=== PATIENT | male | born 1970 | race Caucasian/White ===

== ENCOUNTER 2022-11-07 06:56 | Day surgery (SDC) | payer MEDICAID ==
[~2022-11-07] VITALS: Ht 177.8 cm; Wt 99.8 kg
[2022-11-07] MEDS ORDERED: MEPERIDINE 100 MG INJ. 100 MG/ML VIAL ONE (08:03)
[2022-11-07] MEDS ORDERED: MIDAZOLAM HCL 5 MG/5 ML VIAL ONE ×2 (08:03→08:48)
[2022-11-07] MEDS ORDERED: SIMETHICONE 40 MG/0.6 ML ML ONE (08:04)
[2022-11-07 08:25] VITALS: O2SAT 98
[2022-11-07 15:34] VITALS: BP_SYST 144; PULSE 64; RESP 16; TEMP 98
== END 2022-11-07 09:52 | disposition home or self-care (01) ==
LOC: SDS 06:56 → SMU 06:57 → SDS 09:52
PROVIDERS: ATTEND Internal Medicine Gastroenterology
DX: Z12.11 Encounter for screening for malignant neoplasm of colon (principal); D12.3 Benign neoplasm of transverse colon; K64.8 Other hemorrhoids; E78.5 Hyperlipidemia, unspecified; E66.9 Obesity, unspecified; Z68.32 Body mass index [BMI] 32.0-32.9, adult
CPT/HCPCS: 45380; 99152; 88305; 99153; G0378; J2250; J2175